=== PATIENT | male | born 1985 | race Two or more races ===

== ENCOUNTER 2019-02-04 21:07 | Emergency (ER) | payer MEDICAID ==
[~2019-02-04] VITALS: Ht 188 cm; Wt 108.9 kg
[2019-02-04 23:18] LABS: Basophils # (auto) 0.1 uL; Basophils % (auto) 0.8 % (0.0-2.0); Eosinophils # (auto) 0.2 uL; Hematocrit 48.7 % (41.0-53.0); Hemoglobin 17.2 g/dL (13.5-17.5); Lymphocytes # (auto) 2.8 uL; Lymphocytes % (auto) 35.8 % (10.0-50.0); Mean Corpuscular Hemoglobin 31.1 pg (28.0-32.0); Mean Corpuscular Hgb Conc. 35.3 g/dL (32.0-36.0); Monocytes # (auto) 0.7 uL; Monocytes % (auto) 9.7 % (0.0-12.0); Neutrophils % (auto) 51.7 % (37.0-80.0); Nucleated Red Blood Cells % 0.1 %; Platelet Count (auto) 321 10^3/uL (140-450); Red Blood Cells 5.53 10^6/uL (4.5-5.90); Red Cell Distribution Width 12.6 % (11.8-14.3); White Blood Cell 7.7 10^3/uL (4.4-10.8)
[2019-02-04 23:38] LABS: Albumin 4.4 g/dL (3.4-5.0); Anion Gap 5 (5-15); Aspartate Aminotransferase 24 U/L (15-37); BUN/Creatinine Ratio 10.1; Blood Urea Nitrogen 12 mg/dL (7-18); Calcium 9.2 mg/dL (8.5-10.1); Carbon Dioxide 28 mmol/L (21-32); Chloride 105 mmol/L (98-107); GFR African American 90 mL/min; GFR Non-African American 74 mL/min; Glucose 93 mg/dL (74-106); Sodium 138 mmol/L (136-145)
[2019-02-04 23:49] LABS: Alanine Aminotransferase 48 U/L (16-61); Alkaline Phosphatase 65 U/L (45-117); Bilirubin, Total 0.5 mg/dL (0.2-1.0); Total Protein 8.4 g/dL (6.4-8.2)
[2019-02-05 00:52] VITALS: BP 174/67
== END 2019-02-05 01:07 | disposition home or self-care (01) ==
LOC: ER 21:11
DX: R42 Dizziness and giddiness (principal); R51 Headache; Z88.6 Allergy status to analgesic agent
CPT/HCPCS: 36415; 70450; 80053; 84484; 85025; 93005

== ENCOUNTER 2019-02-10 21:08 | Emergency (ER) | payer MEDICAID ==
[~2019-02-10] VITALS: Ht 185.4 cm; Wt 99.8 kg
[2019-02-10 21:58] VITALS: BP 125/95
[2019-02-10] MEDS ORDERED: DexAMETHasone SOD PHOS 10MG/1ML VIAL INJ IM ONE (22:30)
== END 2019-02-10 23:35 | disposition home or self-care (01) ==
LOC: ER 21:08
DX: H65.93 Unspecified nonsuppurative otitis media, bilateral (principal); H69.93 Unspecified Eustachian tube disorder, bilateral; Z88.8 Allergy status to other drugs, medicaments and biological substances
CPT/HCPCS: 96372; 99283; J1100

== ENCOUNTER 2019-11-15 14:06 | Emergency (ER) | payer MEDICAID ==
[~2019-11-15] VITALS: Ht 188 cm; Wt 108.9 kg
[2019-11-15 14:27] VITALS: BP 132/96
[2019-11-15 15:05] LABS: Urine Bacteria None Seen /hpf (None Seen); Urine WBC None Seen /hpf (0 - 3)
[2019-11-15] MEDS ORDERED: AZITHROMYCIN 250 MG TAB PO ONE (15:15)
[2019-11-15] MEDS ORDERED: cefTRIAXone SOD 500 MG VL IM ONE (15:15)
[2019-11-15 16:42] LABS: Urine Specific Gravity 1.015 (1.001-1.035)
[2019-11-15 16:43] LABS: Urine Blood Trace /uL (Negative)
== END 2019-11-15 16:00 | disposition home or self-care (01) ==
LOC: ER 14:06
DX: R36.9 Urethral discharge, unspecified (principal); Z20.2 Contact with and (suspected) exposure to infections with a predominantly sexual mode of transmission; Z88.8 Allergy status to other drugs, medicaments and biological substances
CPT/HCPCS: 81001; 96372; 99283; J0696